=== PATIENT | male | born 1995 | race Caucasian/White ===

== ENCOUNTER 2017-08-15 07:08 | Day surgery (SDC) | payer MEDICAID ==
[~2017-08-15] VITALS: Ht 167.6 cm; Wt 61.2 kg
[2017-08-15] MEDS ORDERED: ONDANSETRON HCL 4 MG/2 ML VIAL IVP PRN (09:30)
[2017-08-15] MEDS ORDERED: fentaNYL CITRATE/PF 100 MCG/2 ML AMP IVP PRN ×2 (09:30)
[2017-08-15] MEDS ORDERED: fentaNYL CITRATE/PF 100 MCG/2 ML AMP ONE (11:22)
[2017-08-15 11:48] VITALS: BP_SYST 112
== END 2017-08-15 12:55 | disposition home or self-care (01) ==
LOC: SDS 07:08 → EDSTATUS 08:30 → SDS 12:55 → UNDODISOB 12:55
PROVIDERS: ATTEND Otolaryngology
DX: J35.03 Chronic tonsillitis and adenoiditis (principal); M54.5 Low back pain; Z87.891 Personal history of nicotine dependence
CPT/HCPCS: 42826; 88304; J3010; J7120; G0378

== ENCOUNTER 2017-08-15 22:56 | Emergency (ER) | payer MEDICAID ==
[~2017-08-15] VITALS: Ht 167.6 cm; Wt 61.2 kg
[2017-08-15 23:04] VITALS: BP_SYST 159
[2017-08-15] MEDS ORDERED: LIDOCAINE VISCOUS 2%, 15 ML UDC MM ONE (23:30)
[2017-08-16 00:51] VITALS: BP_SYST 147
== END 2017-08-16 00:57 | disposition home or self-care (01) ==
LOC: SED 22:56
DX: J95.831 Postprocedural hemorrhage of a respiratory system organ or structure following other procedure (principal); Z98.890 Other specified postprocedural states
CPT/HCPCS: 99283; J2001; J7030

== ENCOUNTER 2017-08-16 11:38 | Day surgery (SDC) | payer MEDICAID ==
[~2017-08-16] VITALS: Ht 167.6 cm; Wt 63.5 kg
[2017-08-16 11:38] VITALS: BP_SYST 115
--- NOTE | 2017-08-16 11:38 | NUR ---
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 Pt presents with active bleeding to back of throat s/p tonsilectomy yesterday. Approx 50 mL bright red blood to emesis bag. Airway patent. VSS. Skin pink, warm and dry.
--- NOTE | 2017-08-16 11:50 | NUR ---
Approx 100 mL to emesis bag. Pt denies c/o pain. Airway patent.
[2017-08-16] MEDS ORDERED: NACL 0.9% 1,000 ML IV ONE ×3 (11:56→13:15)
[2017-08-16 12:21] LABS: BASOPHILS # (AUTO) 0.3 K/uL (0.0-0.2); BASOPHILS % (AUTO) 1.4 % (0.0-2.0); HEMATOCRIT 43.9 % (36-54); HEMOGLOBIN 14.8 g/dL (14.0-18.0); LYMPHOCYTES # (AUTO) 1.5 K/uL (1.0-5.5); LYMPHOCYTES % (AUTO) 8.2 % (20.5-51.5); MEAN CORPUSCULAR HEMOGLOBIN 29 pg (27-31); MEAN CORPUSCULAR HGB CONC 34 % (32-36); MEAN CORPUSCULAR VOLUME 85 fL (79.0-98.0); MONOCYTES # (AUTO) 1.7 K/uL (0.0-1.0); MONOCYTES % (AUTO) 9.4 % (1.7-9.3); NEUTROPHILS # (AUTO) 14.9 K/uL (1.8-7.7); PLATELET COUNT (AUTO) 292 K/uL (130-430); RED BLOOD CELL COUNT(AUTO) 5.16 MIL/uL (4.2-6.2); RED CELL DISTRIBUTION WIDTH 13.1 % (9.0-15.0); WHITE BLOOD COUNT (AUTO) 18.4 K/uL (4.8-10.8)
[2017-08-16 12:28] LABS: CALCIUM 9.6 mg/dL (8.4-11.0); CREATININE 0.8 mg/dL (0.55-1.30); POTASSIUM 3.5 mmol/L (3.5-5.1)
[2017-08-16] MEDS ORDERED: TRANEXAMIC ACID 1,000 MG/10 ML VIAL IV ONE ×2 (12:30→12:45)
--- NOTE | 2017-08-16 12:30 | NUR ---
Pt continuously spitting up bright red blood, approx 200mL to emesis bag. Dr. Woodard notified. VSS.
[2017-08-16 12:33] LABS: ALBUMIN 4.1 g/dL (3.4-4.8); TOTAL BILIRUBIN 0.9 mg/dL (0.0-1.0)
[2017-08-16 12:38] LABS: INR 1.1 (0.80-1.20); PROTHROMBIN TIME 11.6 SECS (9.5-12.5)
[2017-08-16] MEDS ORDERED: ONDANSETRON HCL 4 MG/2 ML VIAL IVP ONE (13:00)
[2017-08-16] MEDS ORDERED: TRANEXAMIC ACID 1,000 MG in NS 50 ML IV ONE (13:00)
[2017-08-16] MEDS ORDERED: MORPHINE 2 MG/ML INJ. SYRINGE IVP ONE (13:00)
--- NOTE | 2017-08-16 13:20 | NUR ---
Dr. Bull at bedside to assess pt.
--- NOTE | 2017-08-16 13:22 | NUR ---
Consent for surgery signed by pt.
--- NOTE | 2017-08-16 13:30 | NUR ---
Anesthesiologist at bedside to assess pt.
--- NOTE | 2017-08-16 13:40 | NUR ---
Lidya delarosa in ED - 08/16/17 at 1448 by [email or web address] Pt to OR via stretcher in c/o OR nurse. VSS.
--- NOTE | 2017-08-16 13:40 | NUR ---
Patient will be admitted to care of Dr. Bull. Pt to OR via stretcher in c/o OR nurse. VSS.
[2017-08-16] MEDS ORDERED: fentaNYL CITRATE/PF 100 MCG/2 ML AMP IVP PRN ×2 (14:30)
[2017-08-16] MEDS ORDERED: ONDANSETRON HCL 4 MG/2 ML VIAL IVP PRN (14:30)
[2017-08-16 14:47] VITALS: BP_SYST 125
--- NOTE | 2017-08-16 16:34 | NUR ---
Patient admitted to Medical Surgical Floor for observation. Vital signs taken: BP:122/74, P:119, O2: 96% on RA T:99.5. Patient sleeping at this time. Mother educated on use of call light and verbalized understanding.
--- NOTE | 2017-08-16 17:18 | NUR ---
Post Op Vital signs 1634: BP: 122/74, P:123 O2: 96% 1649:122/79 P:112 O2:96% 1704: 118/70 P:122 O2:94% 1714: 122/61 P:99 O2:99%
== END 2017-08-16 17:00 | disposition home or self-care (01) ==
LOC: SED 11:38 → SDS 13:18 → SED 13:40 → SDS 17:00
PROVIDERS: ATTEND Otolaryngology
PROC: 0W337ZZ Control Bleeding in Oral Cavity and Throat, Via Natural or Artificial Opening (ICD-10-PCS; principal; 2017-08-16 14:00)
DX: J95.830 Postprocedural hemorrhage of a respiratory system organ or structure following a respiratory system procedure (principal)
CPT/HCPCS: 36415; 42960; 80053; 85025; 85610; 85730; 86886; 86900; 86901; 96361; 96365; 96368; 96375; 99285; J2405; J3490; J7030